=== PATIENT | female | born 1985 | race Caucasian/White ===

== ENCOUNTER 2019-04-25 08:27 | Emergency (ER) | payer MEDICAID, OTHER ==
[~2019-04-25] VITALS: Ht 165.1 cm; Wt 77.7 kg
[~2019-04-25 08:27] MED LIST: CYCL-1 PO; DICL50TA8 PO
[2019-04-25 08:30] VITALS: BP 120/74
[2019-04-25] MEDS ORDERED: ipratropium/albuterol 3ml nebule NEB ONE (09:00)
[2019-04-25] MEDS ORDERED: ALBU6.7H9 INH (09:32)
[2019-04-25] MEDS ORDERED: PRED20TA PO (09:32)
[2019-04-25] MEDS ORDERED: CEPH250T PO (09:32)
== END 2019-04-25 10:03 | disposition home or self-care (01) ==
LOC: ER 08:28
DX: J20.9 Acute bronchitis, unspecified (principal); F17.210 Nicotine dependence, cigarettes, uncomplicated; Z71.6 Tobacco abuse counseling; Z88.0 Allergy status to penicillin; Z88.1 Allergy status to other antibiotic agents
CPT/HCPCS: 71046; 94640; 94760; 99283